=== PATIENT | male | born 1975 | race Caucasian/White ===

== ENCOUNTER 2019-03-06 12:09 | Emergency (ER) | payer SELFPAY ==
[~2019-03-06] VITALS: Ht 172.7 cm; Wt 95.9 kg
[2019-03-06 12:18] VITALS: BP 133/70
--- NOTE | 2019-03-06 12:27 | NUR ---
ACCU CHECK 267 AT THIS TIME.
--- NOTE | 2019-03-06 12:40 | NUR ---
DOCTOR AT BEDSIDE
[2019-03-06] MEDS ORDERED: NACL 0.9% 1,000 ML IV ONE (12:50)
[2019-03-06] MEDS ORDERED: ONDANSETRON 4 MG/2 ML VIAL IVP ONE (12:50)
[2019-03-06 13:20] LABS: BASOPHILS % (AUTO) 0.6 % (0.0-2.0); HEMATOCRIT 43.8 % (36-52); HEMOGLOBIN 15.3 g/dL (12.0-18.0); LYMPHOCYTES # (AUTO) 1.5 K/uL (2.0-11.5); LYMPHOCYTES % (AUTO) 26.8 % (20.5-51.1); MEAN CORPUSCULAR HEMOGLOBIN 32 pg (27-31); MEAN CORPUSCULAR HGB CONC 35 g/dL (33-37); MONOCYTES # (AUTO) 0.8 K/uL (0.8-1.0); NEUTROPHILS # (AUTO) 3.4 K/uL (1.8-7.7); NEUTROPHILS % (AUTO) 58.6 % (42.2-75.2); PLATELET COUNT (AUTO) 131 K/uL (140-450); RED BLOOD CELL COUNT(AUTO) 4.86 MIL/uL (4.20-6.10); WHITE BLOOD COUNT (AUTO) 5.8 K/uL (4.8-10.8)
[2019-03-06 13:39] LABS: ALBUMIN 3.1 g/dL (3.4-5.0); ANION GAP 13.7 (8-16); CREATININE 0.9 mg/dL (0.7-1.3); POTASSIUM 3.7 mmol/L (3.5-5.1); TOTAL BILIRUBIN 0.9 mg/dL (0.0-1.0)
[2019-03-06 14:51] LABS: APPEARANCE,URINE CLEAR (CLEAR); BILIRUBIN,URINE 1+ (NEGATIVE); BLOOD, URINE NEGATIVE (NEGATIVE); COLOR,URINE YELLOW (YELLOW); LEUKOCYTE ESTERASE ,URINE NEGATIVE (NEGATIVE); NITRITE, URINE NEGATIVE (NEGATIVE); PH,URINE 7.5 (5.0-9.0); UGLUCOSE 3+ (NEGATIVE)
--- NOTE | 2019-03-06 15:10 | NUR ---
PT REPORTING RELIEF AFTER NS AND ZOFRAN ADMIN. NO EPSIODES OF VOMITTING.
--- NOTE | 2019-03-06 15:15 | NUR ---
ER AWARE OF CURRENT TEMP OF 101.5. ORDER FOR TYLENOL RECEVIED.
[2019-03-06] MEDS ORDERED: ACETAMINOPHEN 325 MG TAB PO ONE (15:45)
--- NOTE | 2019-03-06 15:57 | NUR ---
IV removed, catheter intact and site benign. Applied folded 4x4 gauze and tape to stop bleeding.
[2019-03-06 16:00] VITALS: BP 129/68
--- NOTE | 2019-03-10 12:39 | NUR ---
Late entry. Confirmed with RN that 1000ml 0.9 NS IV was completed at 1420
== END 2019-03-06 15:57 | disposition home or self-care (01) ==
LOC: MED 12:09
DX: E86.0 Dehydration (principal); E11.65 Type 2 diabetes mellitus with hyperglycemia; R06.02 Shortness of breath; R11.2 Nausea with vomiting, unspecified
CPT/HCPCS: 36415; 71045; 80053; 81003; 82948; 85025; 96361; 96374; 99284; J2405; J7030; Q0092